=== PATIENT | male | born 1980 | race African-American/Black ===

== ENCOUNTER 2024-05-14 21:33 | Emergency (ER) | payer MEDICAID ==
[2024-05-14 21:47] VITALS: BP 154/109; PULSE 113
[2024-05-14] MEDS: Ketorolac 30 MG/ML SDV IM ONE (22:01)
[2024-05-14] MEDS: Cyclobenzaprine 10 MG Tab PO ONE (22:02)
[2024-05-14] MEDS: methylPREDNISolone Sodium Succinate 125 MG/2 ML SDV IM ONE (22:02)
== END 2024-05-14 22:22 | disposition home or self-care (01) ==
LOC: FB.ED 21:33
DX: M62.830 Muscle spasm of back (principal); F17.210 Nicotine dependence, cigarettes, uncomplicated; Z88.5 Allergy status to narcotic agent
CPT/HCPCS: 96372; 99283; A9270-GY; J1885; J2919